=== PATIENT | female | born 1995 | race Caucasian/White ===

== ENCOUNTER 2016-10-06 21:09 | Emergency (ER) | payer OTHER ==
[~2016-10-06] VITALS: Ht 170.2 cm; Wt 100.0 kg
[2016-10-07] MEDS ORDERED: MOTRIN800 MG PO (00:50)
[2016-10-07] MEDS ORDERED: NORCO 10/3251 TABLET PO (00:50)
[2016-10-07 01:16] VITALS: BP 124/73
== END 2016-10-07 01:17 | disposition home or self-care (01) ==
LOC: EME 21:09 → RME 21:09
PROC: 2W3SX1Z Immobilization of Right Foot using Splint (ICD-10-PCS; principal; 2016-10-07)
DX: S92.251A Displaced fracture of navicular [scaphoid] of right foot, initial encounter for closed fracture (principal); S80.12XA Contusion of left lower leg, initial encounter; S86.812A Strain of other muscle(s) and tendon(s) at lower leg level, left leg, initial encounter; X50.1XXA Overexertion from prolonged static or awkward postures, initial encounter; Y93.44 Activity, trampolining; Y92.39 Other specified sports and athletic area as the place of occurrence of the external cause; Z88.1 Allergy status to other antibiotic agents
CPT/HCPCS: 73590; 73610; 73630; 99281; 99284